=== PATIENT | female | born 1995 | race Caucasian/White ===

== ENCOUNTER 2017-05-22 16:33 | Emergency (ER) | payer OTHER | END 2017-05-22 19:21 | disposition home or self-care (01) | LOC: FTE 16:33 | DX: N61.1 Abscess of the breast and nipple (principal) | CPT/HCPCS: 99284; Z7502 ==

== ENCOUNTER 2017-09-05 09:10 | Emergency (ER) | payer OTHER ==
[2017-09-05] MEDS: TRIMETHOPRIM/SULFAMETHOX (DS) TAB PO (09:46)
[2017-09-05] MEDS: CEPHALEXIN 500 MG CAP PO (09:46)
[2017-09-05] MEDS: LIDOCAINE 1% (MDV) 20 ML INJ SC (09:50)
[2017-09-05] MEDS: LIDOCAINE 1% (MDV) 10 ML INJ INJ (10:14)
== END 2017-09-05 11:16 | disposition home or self-care (01) ==
LOC: FTE 09:10
DX: S61.304A Unspecified open wound of right ring finger with damage to nail, initial encounter (principal); L03.011 Cellulitis of right finger; W23.1XXA Caught, crushed, jammed, or pinched between stationary objects, initial encounter; Y92.9 Unspecified place or not applicable
CPT/HCPCS: 11760; 99284-25

== ENCOUNTER 2018-04-10 21:19 | Emergency (ER) | payer OTHER | END 2018-04-10 23:11 | disposition home or self-care (01) | LOC: FTE 21:19 | DX: H66.91 Otitis media, unspecified, right ear (principal); J40 Bronchitis, not specified as acute or chronic | CPT/HCPCS: 71046; 81025; 99283-25 ==

== ENCOUNTER 2018-05-19 18:32 | Emergency (ER) | payer OTHER ==
[2018-05-19 19:04] LABS: URINE BLOOD (Dip) POC Negative (NEGATIVE); URINE GLUCOSE (Dip) POC Negative (NEGATIVE); URINE KETONES (Dip) POC Trace (NEGATIVE); URINE LEUKOCYTE EST (Dip) POC Negative (NEGATIVE); URINE NITRITE (Dip) POC Negative (NEGATIVE); URINE TOTAL PROTEIN POC Trace (NEGATIVE)
[2018-05-19] MEDS: LIDOCAINE/MYLANTA 40 ML BTL PO (19:08)
[2018-05-19 19:11] LABS: ADD MAN DIFF? NO
[2018-05-19 19:13] LABS: BASOPHILS % 0.5 % (0.0-2.0); EOSINOPHILS # 0.2 10^3/ul (0.0-0.5); EOSINOPHILS % 1.8 % (0.0-7.0); HEMATOCRIT 41.4 % (37.0-47.0); HEMOGLOBIN 13.9 g/dl (12.0-16.0); LYMPHOCYTES # 1.9 10^3/ul (0.8-2.9); LYMPHOCYTES % 22.9 % (15.0-51.0); MEAN CORPUSCULAR HEMOGLOBIN 28.8 pg (29.0-33.0); MEAN CORPUSCULAR HGB CONC 33.6 g/dl (32.0-37.0); MEAN CORPUSCULAR VOLUME 85.7 fl (82.0-101.0); MEAN PLATELET VOLUME 9.7 fl (7.4-10.4); MONOCYTE # 0.7 10^3/ul (0.3-0.9); MONOCYTES % 8.5 % (0.0-11.0); NEUTROPHIL # 5.6 10^3/ul (1.6-7.5); NEUTROPHILS % 66.1 % (39.0-77.0); PLATELET COUNT 291 10^3/UL (140-415); RED BLOOD COUNT 4.83 10^6/ul (4.20-5.40); RED CELL DISTRIBUTION WIDTH 12.5 % (11.5-14.5)
[2018-05-19 19:13] LABS: WHITE BLOOD COUNT 8.5 10^3/ul (4.8-10.8)
[2018-05-19 19:35] LABS: ALANINE AMINOTRANSFERASE 30 IU/L (13-69); ALBUMIN 4.2 g/dl (3.3-4.9); ALKALINE PHOSPHATASE 80 IU/L (42-121); ANION GAP 12 (5-13); ASPARTATE AMINO TRANSFERASE 20 IU/L (15-46); BILIRUBIN,INDIRECT 0.1 mg/dl (0-1.1); BILIRUBIN,TOTAL 0.1 mg/dl (0.2-1.3); BLOOD UREA NITROGEN 12 mg/dl (7-20); CALCIUM 9.1 mg/dl (8.4-10.2); CARBON DIOXIDE 27 mmol/L (21-31); CHLORIDE 102 mmol/L (97-110); CREATININE 0.62 mg/dl (0.44-1.00); Estimated GFR > 60 mL/min (>60); GLUCOSE 93 mg/dl (70-220); LIPASE 131 U/L (23-300); POTASSIUM 3.4 mmol/L (3.5-5.1); SODIUM 141 mmol/L (135-144); TOTAL PROTEIN 7.2 g/dl (6.1-8.1)
== END 2018-05-19 20:09 | disposition home or self-care (01) ==
LOC: FTE 18:32
DX: K52.9 Noninfective gastroenteritis and colitis, unspecified (principal); Z33.1 Pregnant state, incidental
CPT/HCPCS: 36415; 76705; 80053; 81003; 81025; 83690; 85025; 99284-25

== ENCOUNTER 2018-10-09 17:39 | Outpatient (CLI) | payer OTHER ==
[2018-10-09 20:15] LABS: ADD UMIC NO; UR ASCORBIC ACID NEGATIVE (NEGATIVE); UR BILIRUBIN (Dip) NEGATIVE (NEGATIVE); UR BLOOD (Dip) NEGATIVE (NEGATIVE); UR CLARITY CLEAR (CLEAR); UR COLOR YELLOW (YELLOW); UR GLUCOSE (Dip) NEGATIVE (NEGATIVE); UR KETONES (Dip) NEGATIVE (NEGATIVE); UR LEUKOCYTE ESTERASE (Dip) NEGATIVE Leu/ul (NEGATIVE); UR NITRITE (Dip) NEGATIVE (NEGATIVE); UR SPECIFIC GRAVITY (Dip) 1.011 (1.003-1.030); UR TOTAL PROTEIN (Dip) NEGATIVE (NEGATIVE); UR UROBILINOGEN (Dip) NEGATIVE (NEGATIVE)
[2018-10-09 20:47] LABS: RUPTURE FETAL MEMBRANES NEGATIVE (NEGATIVE)
== END 2018-10-09 20:50 | disposition home or self-care (01) ==
LOC: OBT 17:39 → L-D 17:39 → OBT 20:50
DX: O42.912 Preterm premature rupture of membranes, unspecified as to length of time between rupture and onset of labor, second trimester (principal); Z3A.24 24 weeks gestation of pregnancy
CPT/HCPCS: 76815; 81003; 84112

== ENCOUNTER 2018-10-27 14:42 | Outpatient (CLI) | payer OTHER | END 2018-10-27 17:06 | disposition home or self-care (01) | LOC: OBT 14:42 → L-D 14:43 → OBT 17:06 | DX: O99.512 Diseases of the respiratory system complicating pregnancy, second trimester (principal); J06.9 Acute upper respiratory infection, unspecified; R05 Cough; J02.9 Acute pharyngitis, unspecified; H92.09 Otalgia, unspecified ear; Z3A.27 27 weeks gestation of pregnancy | CPT/HCPCS: 76818 ==

== ENCOUNTER 2018-10-27 17:09 | Emergency (ER) | payer OTHER | END 2018-10-27 18:20 | disposition home or self-care (01) | LOC: FTE 18:20 | DX: O99.89 Other specified diseases and conditions complicating pregnancy, childbirth and the puerperium (principal); R05 Cough; Z3A.27 27 weeks gestation of pregnancy | CPT/HCPCS: 99282; Z7502 ==

== ENCOUNTER 2018-11-24 13:14 | Outpatient (CLI) | payer OTHER ==
[2018-11-24] MEDS: LACTATED RINGER'S 1,000 ML IV (14:10)
[2018-11-24 14:31] LABS: ADD MAN DIFF? NO
[2018-11-24 14:35] LABS: BASOPHILS % 0.3 % (0.0-2.0); EOSINOPHILS # 0.2 10^3/ul (0.0-0.5); EOSINOPHILS % 1.9 % (0.0-7.0); HEMATOCRIT 33.5 % (37.0-47.0); HEMOGLOBIN 11.1 g/dl (12.0-16.0); LYMPHOCYTES # 1.9 10^3/ul (0.8-2.9); LYMPHOCYTES % 23.5 % (15.0-51.0); MEAN CORPUSCULAR HEMOGLOBIN 27.8 pg (29.0-33.0); MEAN CORPUSCULAR HGB CONC 33.1 g/dl (32.0-37.0); MEAN CORPUSCULAR VOLUME 83.8 fl (82.0-101.0); MEAN PLATELET VOLUME 10.4 fl (7.4-10.4); MONOCYTE # 0.6 10^3/ul (0.3-0.9); NEUTROPHIL # 5.2 10^3/ul (1.6-7.5); NEUTROPHILS % 65.9 % (39.0-77.0); PLATELET COUNT 217 10^3/UL (140-415); RED CELL DISTRIBUTION WIDTH 13.2 % (11.5-14.5)
[2018-11-24 14:35] LABS: WHITE BLOOD COUNT 7.9 10^3/ul (4.8-10.8)
[2018-11-24 14:49] LABS: ADD UMIC YES; UR ASCORBIC ACID NEGATIVE (NEGATIVE); UR BILIRUBIN (Dip) NEGATIVE (NEGATIVE); UR BLOOD (Dip) NEGATIVE (NEGATIVE); UR CLARITY SLIGHTLY CLOUDY (CLEAR); UR COLOR AMBER (YELLOW); UR GLUCOSE (Dip) NEGATIVE (NEGATIVE); UR KETONES (Dip) NEGATIVE (NEGATIVE); UR LEUKOCYTE ESTERASE (Dip) NEGATIVE Leu/ul (NEGATIVE); UR MUCUS MANY /HPF (NONE SEEN); UR NITRITE (Dip) NEGATIVE (NEGATIVE); UR RBC 1 /HPF (0-5); UR SPECIFIC GRAVITY (Dip) 1.025 (1.003-1.030); UR SQUAMOUS EPITHELIAL CELL MODERATE /HPF (FEW); UR TOTAL PROTEIN (Dip) 1+ mg/dl (NEGATIVE); UR UROBILINOGEN (Dip) 1+ mg/dL (NEGATIVE); UR WBC 5 /HPF (0-5)
[2018-11-24 14:53] LABS: ALANINE AMINOTRANSFERASE 13 IU/L (13-69); ALBUMIN 3.2 g/dl (3.3-4.9); ALBUMIN/GLOBULIN RATIO 0.88; ALKALINE PHOSPHATASE 128 IU/L (42-121); ANION GAP 8 (5-13); ASPARTATE AMINO TRANSFERASE 18 IU/L (15-46); BILIRUBIN,INDIRECT 0.3 mg/dl (0-1.1); BILIRUBIN,TOTAL 0.3 mg/dl (0.2-1.3); BLOOD UREA NITROGEN 4 mg/dl (7-20); CALCIUM 8.8 mg/dl (8.4-10.2); CARBON DIOXIDE 23 mmol/L (21-31); CHLORIDE 107 mmol/L (97-110); Estimated GFR > 60 mL/min (>60); GLUCOSE 80 mg/dl (70-220); POTASSIUM 3.8 mmol/L (3.5-5.1); SODIUM 138 mmol/L (135-144); TOTAL PROTEIN 6.8 g/dl (6.1-8.1)
== END 2018-11-24 15:20 | disposition home or self-care (01) ==
LOC: OBT 13:14 → L-D 13:14 → OBT 15:20
DX: O26.893 Other specified pregnancy related conditions, third trimester (principal); R11.0 Nausea; Z3A.31 31 weeks gestation of pregnancy
CPT/HCPCS: 36415; 76817; 76818; 80053; 81001; 85025

== ENCOUNTER 2019-01-24 14:53 | Inpatient (IN) | payer OTHER ==
[2019-01-24] MEDS ORDERED: OXYCODONE/ASPIRIN (4.88/325) TAB PO (20:00)
[2019-01-24] MEDS ORDERED: OXYTOCIN 30 UNITS/LR 500 ML IV (20:00)
[2019-01-24] MEDS ORDERED: BUTORPHANOL 2 MG INJ IV (20:00)
[2019-01-24] MEDS ORDERED: FENTAnyl 50 MCG/ML VIAL IV (20:00)
[2019-01-24] MEDS ORDERED: CARBOPROST 250 MCG INJ IM (20:00)
[2019-01-24] MEDS ORDERED: LIDOCAINE 1% (MPF) 30 ML INJ INJ (20:00)
[2019-01-24] MEDS ORDERED: METHYLERGONOVINE 0.2 MG INJ IM (20:00)
[2019-01-24] MEDS ORDERED: IBUPROFEN 600 MG TAB PO (20:00)
[2019-01-24] MEDS ORDERED: MISOPROSTOL 200 MCG TAB PR (20:00)
[2019-01-24] MEDS: AMPICILLIN 2 GM/NS (PMX) 100 ML IV (21:41)
[2019-01-24] MEDS: LACTATED RINGER'S 1,000 ML IV ×2 (21:41→22:41)
[2019-01-24 21:53] LABS: ADD MAN DIFF? NO
[2019-01-24 21:56] LABS: BASOPHILS % 0.2 % (0.0-2.0); EOSINOPHILS # 0.1 10^3/ul (0.0-0.5); HEMATOCRIT 36.2 % (37.0-47.0); HEMOGLOBIN 11.4 g/dl (12.0-16.0); LYMPHOCYTES # 2.7 10^3/ul (0.8-2.9); LYMPHOCYTES % 30.5 % (15.0-51.0); MEAN CORPUSCULAR HGB CONC 31.5 g/dl (32.0-37.0); MEAN CORPUSCULAR VOLUME 82.5 fl (82.0-101.0); MEAN PLATELET VOLUME 11.1 fl (7.4-10.4); MONOCYTE # 0.6 10^3/ul (0.3-0.9); MONOCYTES % 6.8 % (0.0-11.0); NEUTROPHIL # 5.5 10^3/ul (1.6-7.5); NEUTROPHILS % 61.3 % (39.0-77.0); PLATELET COUNT 240 10^3/UL (140-415); RED BLOOD COUNT 4.39 10^6/ul (4.20-5.40); RED CELL DISTRIBUTION WIDTH 15.9 % (11.5-14.5)
[2019-01-24 22:15] LABS: INR 0.88; PT RATIO 0.9
[2019-01-24 22:16] LABS: PARTIAL THROMBOPLASTIN TIME 30.1 Sec (23.0-35.0)
[2019-01-24 22:44] LABS: HEPATITIS B SURFACE ANTIGEN NEGATIVE (NEGATIVE)
[2019-01-24] MEDS ORDERED: FENTAnyl 2MCG/ML-ROPIV 0.2% 100 ML (23:27)
[2019-01-25] MEDS ORDERED: NALOXONE (0.4 MG/ML) INJ IV
[2019-01-25] MEDS ORDERED: DIPHENHYDRAMINE 50 MG INJ IV
[2019-01-25] MEDS ORDERED: FENTAnyl 2MCG/ML-ROPIV 0.2% 100 ML BAG EPI
[2019-01-25] MEDS: OXYTOCIN 30 UNITS/LR 500 ML IV ×4 (00:27→06:52)
[2019-01-25] MEDS: AMPICILLIN 1 GM/NS (PMX) 50 ML IV (02:00)
[2019-01-25] MEDS ORDERED: ONDANSETRON 4 MG INJ IV ×2 (04:00)
[2019-01-25] MEDS ORDERED: SENNA/DOCUSATE NA (8.6MG/50MG) TAB PO (04:00)
[2019-01-25] MEDS ORDERED: MAGNESIUM HYDROXIDE 30ML CUP PO (04:00)
[2019-01-25] MEDS ORDERED: DIBUCAINE 1% 30 GM OINT TOP (04:00)
[2019-01-25] MEDS ORDERED: OXYTOCIN 30 UNITS/LR 500 ML IV (04:00)
[2019-01-25] MEDS ORDERED: ACETAMINOPHEN 325 MG TAB PO ×2 (04:00)
[2019-01-25] MEDS ORDERED: METHYLERGONOVINE 0.2 MG INJ IM (04:00)
[2019-01-25] MEDS ORDERED: MISOPROSTOL 200 MCG TAB PR (04:00)
[2019-01-25] MEDS ORDERED: CARBOPROST 250 MCG INJ IM (04:00)
[2019-01-25] MEDS: LACTATED RINGER'S 1,000 ML IV* ×3 (05:31→18:16)
[2019-01-25] MEDS: BENZOCAINE 20% 56 ML SPRAY TOP (05:56)
[2019-01-25] MEDS: WITCH HAZEL/GLYCERIN PAD PR (05:56)
[2019-01-25] MEDS: LANOLIN HPA 1 PKT TOP (05:56)
[2019-01-25 19:41] LABS: RAPID PLASMA REAGIN NONREACTIVE (NR)
[2019-01-26 08:28] LABS: ADD MAN DIFF? NO
[2019-01-26 08:47] LABS: WHITE BLOOD COUNT 9.4 10^3/ul (4.8-10.8)
[2019-01-26 08:47] LABS: BASOPHILS % 0.3 % (0.0-2.0); EOSINOPHILS # 0.1 10^3/ul (0.0-0.5); HEMOGLOBIN 10.4 g/dl (12.0-16.0); LYMPHOCYTES # 2.5 10^3/ul (0.8-2.9); LYMPHOCYTES % 26.2 % (15.0-51.0); MEAN CORPUSCULAR HEMOGLOBIN 26.1 pg (29.0-33.0); MEAN CORPUSCULAR HGB CONC 31.5 g/dl (32.0-37.0); MEAN CORPUSCULAR VOLUME 82.7 fl (82.0-101.0); MEAN PLATELET VOLUME 11.4 fl (7.4-10.4); MONOCYTE # 0.6 10^3/ul (0.3-0.9); MONOCYTES % 5.8 % (0.0-11.0); NEUTROPHIL # 6.3 10^3/ul (1.6-7.5); NEUTROPHILS % 66.3 % (39.0-77.0); PLATELET COUNT 228 10^3/UL (140-415); RED BLOOD COUNT 3.99 10^6/ul (4.20-5.40); RED CELL DISTRIBUTION WIDTH 16.6 % (11.5-14.5)
[2019-01-27] MEDS: IBUPROFEN 600 MG TAB PO (01:29)
[2019-01-27] MEDS: LANOLIN HPA 1 PKT TOP (01:29)
== END 2019-01-27 12:30 | disposition home or self-care (01) | DRG 807 ==
LOC: OBT 14:53 → PP1 01-25 04:51 → L-D 14:53 → OBT 19:50 → L-D 19:50
PROVIDERS: Obstetrics & Gynecology
PROC: 10E0XZZ Delivery of Products of Conception, External Approach (ICD-10-PCS; principal; 2019-01-25)
PROC: 0HQ9XZZ Repair Perineum Skin, External Approach (ICD-10-PCS; 2019-01-25)
DX: O70.9 Perineal laceration during delivery, unspecified (principal); Z37.0 Single live birth; Z3A.40 40 weeks gestation of pregnancy
CPT/HCPCS: 62322; 76815; 76818; 85025; 85610; 85730; 86592; 86850; 86900; 86901; 87340